=== PATIENT | female | born 1995 | race African-American/Black ===

== ENCOUNTER 2021-12-10 14:07 | Emergency (ER) | payer BC, SELFPAY ==
[2021-12-10] VITALS (10 sets, daily range): BP systolic 124–159; BP diastolic 68–84; PULSE 60–86; RESP 11–20; TEMP 36.6; O2SAT 99–100
--- NOTE | ~2021-12-10 | XR_ITS ---
EXAMINATION: XR chest 2V 12/10/2021 15:18 INDICATION: Left-sided chest pain PROCEDURE: 2 view chest COMPARISON: No prior studies for comparison. FINDINGS: The lungs are clear. The cardiomediastinal silhouette is within normal limits. There are no pleural effusions. There is no pneumothorax suspected. IMPRESSION: 1: NO ACUTE CARDIOPULMONARY DISEASE. Reviewed, dictated and finalized at location B.
--- NOTE | 2021-12-10 14:15 | ECG_ITS ---
Measurements Intervals [place] Rate: 75 P: 34 MO: 164 QRS: 64 QRSD: 91 T: 27 QT: 382 QTc: 428 Interpretive Statements SINUS RHYTHM NORMAL AGE NO PREVIOUS ECG AVAILABLE FOR COMPARISON Electronically Signed On 12-10-2021 15:17:47 CDT by Anoop Robertson M.D.
[2021-12-10 15:47] LABS: Basophils Percent Auto 0.2 % (0.2-1.2); Eosinophils Absolute Auto 0.1 K/mm3 (0-0.3); Eosinophils Percent Auto 1.1 % (0-4.4); Hematocrit 39.1 % (37.0-47.0); Hemoglobin 12.8 g/dL (12.0-15.0); Immature Granulocyte Absolute 0.03 K/mm3 (0.00-0.031); Immature Granulocyte Percent A 0.3 % (0-0.5); Lymphocytes Absolute Auto 3.79 K/mm3 (0.9-3.2); Lymphocytes Percent Auto 35.1 % (18.3-44.2); Mean Corpuscular HGB Conc 32.7 g/dl (32-36); Mean Corpuscular Hemoglobin 28.8 pg (26-34); Mean Corpuscular Volume 87.9 fl (80-100); Mean Platelet Volume 10.5 fl (7.4-10.4); Monocytes Absolute Auto 0.8 K/mm3 (0.1-0.6); Monocytes Percent Auto 7.1 % (2.6-8.5); Neutrophils Absolute Auto 6.1 K/mm3 (1.3-6.7); Neutrophils Percent Auto 56.2 % (45.5-73.1); Platelet Count Result 356 k/mm3 (150-375); Red Blood Count 4.45 M/mm3 (4.2-5.4); Red Cell Distribution Width 12.8 % (11.5-14.5); White Blood Count 10.8 K/mm3 (4.5-10.0)
--- NOTE | 2021-12-10 15:58 | ED.CHESTPAIN ---
HPI - Chest Pain General Chief Complaint: Chest Pain Stated Complaint: chest pain intermitten x1 year Time Seen by Provider: 12/10/21 14:44 History of Present Illness HPI narrative: 26-year-old female presented the emergency room for evaluation of intermittent chest pain that she has had for approximately 12 months. Patient states 2-3 occasions a month she experiences left anterior chest pain that lasts about 5 to 10 minutes. States the pain is usually reproducible with inspiration. Denies any radiating pain or shortness of breath difficulty breathing. Denies any syncope or presyncopal events. Denies fever. Denies injury or trauma to the chest wall. Related Data Home Medications Medication Instructions Recorded Confirmed No Home Medications 12/10/21 Allergies Allergy/AdvReac Type Severity Reaction Status Date / Time No Known Allergies Allergy Verified 12/10/21 14:14 Review of Systems Review of Systems: CONSTITUTIONAL: Denies fever, chills, or sweats. EYES: Denies visual changes, redness, or discharge. ENT: Denies rhinorrhea, congestion, sore throat, or otalgia. CARDIOVASCULAR: Reports chest pain RESPIRATORY: Denies cough or dyspnea. GASTROINTESTINAL: Denies abdominal pain, nausea, vomiting, or diarrhea. GENITOURINARY: Denies dysuria or hematuria. SKIN: Denies rash or itching. MUSCULOSKELETAL: Denies back pain, joint pain, or myalgia. NEUROLOGIC: Denies headache, numbness, dizziness, or weakness. PSYCHIATRIC: Denies anxiety or depression. Exam Narrative: GENERAL: Well-appearing, well-nourished, no physical limitations, and in no acute distress. HEAD: Normocephalic, atraumatic. EYES: Conjunctivae normal, PERRLA and EOMI. CHEST: Clear to auscultation. No respiratory distress. No wheezes rales or rhonchi. No tenderness. HEART: Regular rate and rhythm. No murmur heard. Normal peripheral pulses. ABDOMEN: Soft, nontender, nondistended, normal active bowel sounds. EXTREMITIES: Normal range of motion. No edema. No clubbing or cyanosis SKIN: Warm, dry, no rash. No noted wounds NEURO: No focal deficits. Alert and oriented x3. MAEW. CN's II-XI intact bilaterally, normal gait PSYCH: Cooperative. Normal mood and affect. Course Vital Signs Vital signs: Vital Signs Temperature 36.6 C 12/10/21 14:11 Pulse Rate 83 12/10/21 14:11 Respiratory Rate 16 12/10/21 14:11 Blood Pressure 159/84 H 12/10/21 14:11 Pulse Oximetry 99 12/10/21 14:11 Oxygen Delivery Room Air 12/10/21 14:11 Temperature 36.6 C 12/10/21 14:11 Pulse Rate 71 12/10/21 16:31 Respiratory Rate 16 12/10/21 16:31 Blood Pressure 124/68 12/10/21 16:31 Pulse Oximetry 99 12/10/21 16:06 Oxygen Delivery Room Air 12/10/21 16:06 MDM - Chest Pain MDM Narrative Medical decision making narrative: Exam showed no evidence of iron volume overload. EKG shows no signs of active ischemia. Single troponin was negative. Presentation not consistent with an acute PE, pneumothorax, or infectious process. Heart score is 1 so will discharge patient home have her follow-up with her primary care physician. Lab Data Result diagrams: 12/10/21 15:40 12/10/21 15:40 Labs: Lab Results 12/10/21 12/10/21 12/10/21 Range/Units 15:40 15:40 15:40 WBC 10.8 H (4.5-10.0) K/mm3 RBC 4.45 (4.2-5.4) M/mm3 Hgb 12.8 (12.0-15.0) g/dL Hct 39.1 (37.0-47.0) % MCV 87.9 (80-100) fl MCH 28.8 (26-34) pg MCHC 32.7 (32-36) g/dl RDW 12.8 (11.5-14.5) % Plt Count 356 (150-375) k/mm3 MPV 10.5 H (7.4-10.4) fl Immature Gran % (Auto) 0.3 (0-0.5) % Neut % (Auto) 56.2 (45.5-73.1) % Lymph % (Auto) 35.1 (18.3-44.2) % [place] % (Auto) 7.1 (2.6-8.5) % Eos % (Auto) 1.1 (0-4.4) % Baso % (Auto) 0.2 (0.2-1.2) % Lymph # (Auto) 3.79 H (0.9-3.2) K/mm3 [place] # (Auto) 0.8 H (0.1-0.6) K/mm3 Eos # (Auto) 0.1 (0-0.3) K/mm3 Baso # (Auto) 0.0 (0.0-0.1) K/
[2021-12-10 16:00] LABS: Alanine Aminotransferase 15 U/L (6-35); Albumin Level 4.2 g/dL (3.5-5.1); Alkaline Phosphatase 98 U/L (38-126); Anion Gap 9 mmol/L (8-16); Aspartate Amino Transferase 19 U/L (14-36); Bilirubin,Total 0.2 mg/dL (0.2-1.3); Blood Urea Nitrogen 13 mg/dL (7-17); Calcium 9.5 mg/dL (8.4-10.2); Carbon Dioxide 25 mmol/L (22-30); Chloride 102 mmol/L (98-107); Estimated CRCL calculation 126 ml/min; Estimated Glomerular Filt Rate > 60; Glucose 107 mg/dL (65-110); Lipase 66 U/L (23-300); Potassium 3.9 mmol/L (3.4-5.0); Sodium 136 mmol/L (137-145)
[2021-12-10 16:23] LABS: Troponin I < 0.012 ng/mL (0.000-0.034)
[2021-12-10 16:51] LABS: INR 0.9; Prothrombin Time 11.7 Seconds (11.1-14.7)
== END 2021-12-10 17:14 | disposition home or self-care (01) ==
PROVIDERS: Emergency Medicine; Emergency Provider Nurse Practitioner Family
DX: R07.89 Other chest pain (principal)
CPT/HCPCS: 36415; 71046; 80053; 83690; 84443; 84484; 85025; 85610; 85730; 93005; 99284